=== PATIENT | female | born 1940 | race Caucasian/White ===

== ENCOUNTER 2018-01-31 11:09 | Inpatient (IN) | payer OTHER ==
[~2018-01-31] VITALS: Ht 154.9 cm; Wt 98.3 kg
[~2018-01-31 11:09] MED LIST: ADVIL200 MG PO; BENICAR20 MG PO; BENICAR5 MG PO; CIPRO500 MG PO; COUMADIN PO; FEOSOL325 MG PO; FIBER GUMMIES2.5 GM PO; HYGROTON25 MG PO; LASIX20 MG PO; Levothroid,Synthroid PO; MITRAZOL POWDER30 GM TP; NYSTATIN-TRIAMC15 GM TP; ONE-A-DAY ESSE1 EAC1 PO; PERCOCET 5/31 TABLET PO; PRANDIN1 MG PO; PRAVACHOL10 MG PO; PREDNISONE20 MG PO; Proventil,Ventolin H IH; SENOKOT S,PE1 TABLET PO; SPIRONOLACTONE25 MG PO; SYNTHROID50 MCG PO; THERAGRAN1 TABLET PO; TIMOLOL MALEATE15 M1 BOTH EYES; VITAMIN B-122500 MCG SL; VITAMIN D2000 INTUN PO; Vicodin,Lortab 5/500 PO; Vitamin B-12 SL; XALATAN 0.50 DROP/2. BOTH EYES; XALATAN2.5 ML BOTH EYES; ZANTAC300 MG PO
[2018-01-31 12:08] LABS: HEMATOCRIT 42.6 % (36.0-46.0); HEMOGLOBIN 14.5 G/DL (11.9-15.5); MCH 30.6 PG (29.0-34.0); MCV 89.9 FL (83-99); PLATELET COUNT 291 K/uL (156-360); RBC DIS.WIDTH-CV 12.2 % (11.8-14.6); RBC DIS.WIDTH-SD 40.7 % (39-53); RED BLOOD COUNT 4.74 M/uL (3.80-5.20); WHITE BLOOD COUNT 10.4 K/uL (4.1-10.2)
[2018-01-31 12:19] LABS: ALBUMIN 3.8 g/dL (3.2-4.8)
[2018-01-31 12:20] LABS: CHLORIDE 107 mEq/L (99-109); POTASSIUM 4.3 mEq/L (3.7-5.4); SODIUM 140 mEq/L (136-147)
[2018-01-31 12:22] LABS: GLUCOSE 236 mg/dL (70-99); TOTAL PROTEIN 6.8 g/dL (6.4-8.3)
[2018-01-31 12:24] LABS: TOTAL BILIRUBIN 0.3 mg/dL (0.0-1.0)
[2018-01-31 12:25] LABS: ALKALINE PHOSPHATASE 123 IU/L (3-129); GFR ESTIMATE (CALCULATED) 57 mL/min/
[2018-01-31 12:27] LABS: AST (GOT) 14 IU/L (2-34); UREA NITROGEN (BUN) 16 mg/dL (9-23)
[2018-01-31 12:28] LABS: ALT (GPT) 19 IU/L (3-49)
[2018-01-31 12:59] LABS: APPEARANCE SL.HAZY ((CLEAR)); BILIRUBIN NEGATIVE; BLOOD SMALL; COLOR YELLOW ((YELLOW)); GLUCOSE (STRIP) NEGATIVE; KETONES NEGATIVE; LEUKOCYTES NEGATIVE; NITRITE NEGATIVE; PROTEIN (STRIP) NEGATIVE; SPECIFIC GRAVITY 1.009 (1.000-1.030); UROBILINOGEN 0.2 MG/DL (0.2-1.0)
[2018-01-31 13:16] LABS: BACTERIA RARE /HPF; EPITHELIAL CELLS 1+ /HPF; HYALINE CASTS 0-5 /LPF; MUCUS TRACE /LPF; RED BLOOD CELLS 0-5 /HPF (0-5); UCUL ADDED? NO; WHITE BLOOD CELLS 0-5 /HPF (0-5)
[2018-01-31] MEDS ORDERED: PROAIR HFA8.5 GM IH (14:21)
[2018-01-31] MEDS ORDERED: NYSTATIN-TRIAMC15 GM TP (14:23)
[2018-01-31] MEDS ORDERED: FIBER CHOICE PO (14:23)
[2018-01-31 16:19] VITALS: BP 158/69
[2018-01-31] MEDS ORDERED: LATANOPROST2.5 ML BOTH EYES (22:07)
[2018-01-31] MEDS ORDERED: ISTALOL5 ML BOTH EYES (22:12)
[2018-01-31 22:45] VITALS: BP 159/68
[2018-02-01 03:31] VITALS: BP 137/63
[2018-02-01 07:47] VITALS: BP 117/58
[2018-02-01 09:05] LABS: HEMATOCRIT 43.1 % (36.0-46.0); HEMOGLOBIN 14.2 G/DL (11.9-15.5); MCH 30.1 PG (29.0-34.0); MCHC 32.9 G/DL (30.0-36.0); MCV 91.3 FL (83-99); PLATELET COUNT 312 K/uL (156-360); RBC DIS.WIDTH-CV 12.5 % (11.8-14.6); RBC DIS.WIDTH-SD 41.2 % (39-53); RED BLOOD COUNT 4.72 M/uL (3.80-5.20); WHITE BLOOD COUNT 18.7 K/uL (4.1-10.2)
[2018-02-01 09:35] LABS: ALBUMIN 3.5 G/DL (3.2-4.8); ALKALINE PHOSPHATASE 97 IU/L (3-129); ALT (GPT) 15 IU/L (3-49); AST (GOT) 18 IU/L (2-34); CHLORIDE 103 MEQ/L (99-109); GFR ESTIMATE (CALCULATED) 57 mL/min/; GLUCOSE 199 mg/dL (70-99); MAGNESIUM 1.6 mg/dl (1.3-2.7); PHOSPHORUS 3.6 mg/dL (2.5-4.9); POTASSIUM 4.4 MEQ/L (3.7-5.4); SODIUM 136 MEQ/L (136-147); TOTAL BILIRUBIN 0.5 MG/DL (0.0-1.0); TOTAL PROTEIN 6.4 G/DL (6.4-8.3); UREA NITROGEN (BUN) 16 mg/dL (9-23)
[2018-02-01 11:10] VITALS: BP 102/52
[2018-02-01] MEDS ORDERED: COLACE100 MG PO (12:08)
[2018-02-01] MEDS ORDERED: ENDOCET 5-3251 EACH PO (12:08)
== END 2018-02-01 15:38 | disposition home or self-care (01) | DRG 354 ==
LOC: EME 11:09 → EDOF 14:39 → ENRESERV 14:46 → 2EAST 15:56
PROVIDERS: Surgery
PROC: 0WQF4ZZ Repair Abdominal Wall, Percutaneous Endoscopic Approach (ICD-10-PCS; principal; 2018-01-31)
DX: K42.0 Umbilical hernia with obstruction, without gangrene (principal); K40.90 Unilateral inguinal hernia, without obstruction or gangrene, not specified as recurrent; D51.0 Vitamin B12 deficiency anemia due to intrinsic factor deficiency; E11.9 Type 2 diabetes mellitus without complications; I10 Essential (primary) hypertension; E03.9 Hypothyroidism, unspecified; Z96.642 Presence of left artificial hip joint; E66.01 Morbid (severe) obesity due to excess calories; Z68.41 Body mass index [BMI] 40.0-44.9, adult; Z87.891 Personal history of nicotine dependence
CPT/HCPCS: 74177; 80053; 81003; 82948; 83735; 84100; 85027; 88304; 94010; 99202; 99281; 99285; C1781; J0360; J1100; J1650; J2405; J2710; J3010; J7030; J7120; S0020; S0074